=== PATIENT | female | born 2000 | race Caucasian/White ===

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

== ENCOUNTER 2021-02-14 15:19 | Emergency (ER) | payer BC, MEDICAID | END 2021-02-14 16:00 | disposition home or self-care (01) | LOC: BURERS 15:19 | DX: O9A.211 Injury, poisoning and certain other consequences of external causes complicating pregnancy, first trimester (principal); S80.02XA Contusion of left knee, initial encounter; S80.01XA Contusion of right knee, initial encounter; S80.261A Insect bite (nonvenomous), right knee, initial encounter; S60.36 Insect bite (nonvenomous) of thumb; Z3A.08 8 weeks gestation of pregnancy; W19.XXXA Unspecified fall, initial encounter | CPT/HCPCS: 99283 ==